=== PATIENT | male | born 1985 | race African-American/Black ===

== ENCOUNTER 2019-03-30 06:55 | Emergency (ER) | payer SELFPAY ==
[~2019-03-30] VITALS: Ht 175.3 cm; Wt 137.0 kg
[2019-03-30 07:04] VITALS: BP 158/95
[2019-03-30] MEDS ORDERED: LIDOCAINE 0.5%-EPI 1:200,000 50 ML VIAL ONE (07:15)
[2019-03-30] MEDS ORDERED: LIDOCAINE 1%-EPI 1:100,000 50 ML VIAL IJ ONE (07:30)
--- NOTE | 2019-03-30 07:37 | NUR ---
Patient discharged to home in stable condition. Written and verbal after care instructions given. Patient verbalizes understanding of instruction. Pt ambulatory with a steady gait
== END 2019-03-30 07:38 | disposition home or self-care (01) ==
LOC: ER 07:00
DX: L02.411 Cutaneous abscess of right axilla (principal)
CPT/HCPCS: 10060; 99283; J3490 ×2